=== PATIENT | female | born 1940 | race African-American/Black ===

== ENCOUNTER 2025-02-17 00:32 | Inpatient (IN) | payer MEDICARE ==
[~2025-02-17] VITALS: Ht 165.1 cm; Wt 59.0 kg
[2025-02-17 00:35] VITALS: O2SAT 98
[2025-02-17] MEDS: ONDANSETRON HCL 4MG/2ML INJ IV ONE (01:17)
[2025-02-17] MEDS: MORPHINE SULFATE 4 MG/ML INJ (FOR IV/IM USE) IV ONE (01:18)
[2025-02-17] MEDS: KETOROLAC 15MG/ML VIAL IV ONE (01:19)
[2025-02-17 01:20] LABS: BASOPHILS % 0.3 % (0.0-2.0); EOSINOPHILS % 0.1 % (0.0-5.0); HEMATOCRIT. 35.4 % (36.0-48.0); HEMOGLOBIN. 11.1 g/dL (12.0-16.0); LYMPHOCYTES % 9.4 % (20.0-50.0); MEAN PLATELET VOLUME 9.7 fl (7.4-10.4); MONOCYTES % 5.8 % (2.0-8.0); NEUTROPHILS % 84.4 % (40.0-76.0); PLATELET 208 x1000/uL (130-400); RED BLOOD CELL COUNT 3.94 mill/uL (4.2-5.4); RED CELL DISTRIBUTION WIDTH 14.5 % (11.6-14.6)
[2025-02-17 01:35] LABS: CREATININE 1.2 mg/dL (0.6-1.0); UREA NITROGEN BLOOD 19 mg/dL (9-23)
[2025-02-17 01:36] LABS: PROTEIN TOTAL 7.8 g/dL (6.0-8.3)
[2025-02-17 01:37] LABS: ASPARTATE AMINOTRANSFERASE 34 IU/L (<34); BILIRUBIN DIRECT 0.2 mg/dL (<=3.0); BILIRUBIN TOTAL 0.6 mg/dL (0.1-1.0)
[2025-02-17 05:19] VITALS: BP 128/72; PULSE 97; RESP 19; TEMP 36.14
[2025-02-17 08:00] VITALS: BP 106/58; PULSE 90; RESP 18; TEMP 37.4; O2SAT 97
[2025-02-17] MEDS ORDERED: MAGNESIUM/ALUMINUM HYDROXIDE/SIMETHICONE 30ML UDC PO PRN (08:45)
[2025-02-17] MEDS ORDERED: ONDANSETRON HCL 4MG/2ML INJ IV PRN (08:45)
[2025-02-17] MEDS ORDERED: ACETAMINOPHEN 650MG SUPP PR PRN ×2 (08:45)
[2025-02-17] MEDS ORDERED: GUAIFENESIN 200MG/10ML SUGAR FREE UDC PO PRN (08:45)
[2025-02-17] MEDS ORDERED: DOCUSATE SODIUM 100MG CAPSULE PO PRN (08:45)
[2025-02-17] MEDS ORDERED: IPRATROPIUM/ALBUTEROL 0.5-3(2.5)MG/3ML NEB HHN PRN (08:45)
[2025-02-17] MEDS: DEXT 5%/0.9% NACL 1,000 ML IV SCH (09:06)
[2025-02-17] MEDS: SODIUM ZIRCONIUM CYCLOSILICATE 10GM/PACKET PO SCH (09:15)
[2025-02-17] MEDS: MORPHINE SULFATE 2 MG/ML INJ (NOT FOR IM USE) IV PRN (09:16)
[2025-02-17 12:00] VITALS: BP 131/71; PULSE 101; RESP 18; TEMP 37.9; O2SAT 97
[2025-02-17 13:34] LABS: CLARITY URINE TURBID (CLEAR); COLOR URINE YELLOW (YELLOW); GLUCOSE URINE 3+ (NEGATIVE); KETONES URINE NEGATIVE (NEGATIVE); LEUKOCYTE ESTERASE URINE 1+ (NEGATIVE); NITRITE URINE NEGATIVE (NEGATIVE); OCCULT BLOOD URINE NEGATIVE (NEGATIVE); PH URINE 5.0 (4.5-8.0); PROTEIN URINE 1+ (NEGATIVE); SPECIFIC GRAVITY URINE 1.024 (1.005-1.030); UROBILINOGEN URINE 0.2 E.U./dL (0.2-1.0)
[2025-02-17 13:37] LABS: *AMPHETAMINES SCREEN URINE NEGATIVE (NEGATIVE)
[2025-02-17 13:38] LABS: *BARBITURATES SCREEN URINE NEGATIVE (NEGATIVE); *BENZODIAZEPINES SCREEN URINE NEGATIVE (NEGATIVE); *COCAINE SCREEN URINE NEGATIVE (NEGATIVE); CANNABINOID URINE SCREEN NEGATIVE (NEGATIVE); ECSTASY MDMA SCREEN URINE NEGATIVE (NEGATIVE); METHADONE URINE SCREEN NEGATIVE (NEGATIVE); OPIATES URINE SCREEN PRESUMPTIVE POSITIVE (NEGATIVE); PHENCYCLIDINE URINE SCREEN NEGATIVE (NEGATIVE)
[2025-02-17 13:59] LABS: BACTERIA URINE 4+; SQUAMOUS EPITHELIAL CELL URINE RARE /lpf (RARE/1+)
[2025-02-17 14:01] LABS: RBC URINE 0-2 /hpf (0-2)
[2025-02-17 16:00] VITALS: BP 110/63; PULSE 103; RESP 16; TEMP 38; O2SAT 97
[2025-02-17] MEDS: ACETAMINOPHEN 650MG/20.3ML UDC PO PRN (16:05)
[2025-02-17] MEDS ORDERED: SODIUM ZIRCONIUM CYCLOSILICATE 10GM/PACKET PO NR (18:15)
[2025-02-17] MEDS ORDERED: NALOXONE HCL 0.4MG/ML VIAL IV PRN (19:00)
[2025-02-17] MEDS: SODIUM ZIRCONIUM CYCLOSILICATE 10GM/PACKET PO NR (19:44)
[2025-02-17 20:00] VITALS: BP 101/51; PULSE 93; RESP 16; RESP 18; TEMP 36.1; O2SAT 96
[2025-02-17] MEDS: KETOROLAC 30MG/ML VIAL IV NR (23:10)
[2025-02-18] VITALS: BP 111/63; PULSE 95; RESP 18; TEMP 36.7; O2SAT 96
[2025-02-18 04:00] VITALS: BP 131/65; PULSE 91; RESP 18; TEMP 36.6; O2SAT 95
[2025-02-18 08:00] VITALS: BP 139/66; PULSE 97; RESP 18; TEMP 37.1; O2SAT 97
[2025-02-18] MEDS: CEFTRIAXONE 1GM/50ML 50 ML IV SCH (08:16)
[2025-02-18 08:23] LABS: INR 1.0
[2025-02-18 08:24] LABS: CREATININE 1.0 mg/dL (0.6-1.0); TRIGLYCERIDE 125 mg/dL (0-150); UREA NITROGEN BLOOD 22 mg/dL (9-23)
[2025-02-18 08:25] LABS: LDL CHOLESTEROL 45 mg/dL (5-100)
[2025-02-18 08:27] LABS: BASOPHILS % 0.4 % (0.0-2.0); EOSINOPHILS % 1.1 % (0.0-5.0); HEMATOCRIT. 24.2 % (36.0-48.0); HEMOGLOBIN. 7.8 g/dL (12.0-16.0); LYMPHOCYTES % 29.2 % (20.0-50.0); MEAN PLATELET VOLUME 9.6 fl (7.4-10.4); MONOCYTES % 11.1 % (2.0-8.0); NEUTROPHILS % 58.2 % (40.0-76.0); PLATELET 136 x1000/uL (130-400); RED BLOOD CELL COUNT 2.70 mill/uL (4.2-5.4); RED CELL DISTRIBUTION WIDTH 14.4 % (11.6-14.6)
[2025-02-18 08:32] LABS: T4 FREE 1.34 ng/dL (0.89-1.76)
[2025-02-18] MEDS ORDERED: PROPOFOL 200MG/20ML VIAL IV ONE (09:31)
[2025-02-18] MEDS ORDERED: FENTANYL CITRATE/PF 50MCG/ML 2ML VIAL ONE (09:31)
[2025-02-18] MEDS ORDERED: MIDAZOLAM HCL 2 MG/2 ML VIAL ONE (09:31)
[2025-02-18] MEDS ORDERED: TRANEXAMIC ACID 1000MG PREMIX 100 ML IV ONE (09:54)
[2025-02-18] MEDS: FENTANYL CITRATE/PF 50MCG/ML 2ML VIAL IV PRN (10:59)
[2025-02-18] MEDS ORDERED: HYDRALAZINE 20MG/ML VIAL IV PRN (11:00)
[2025-02-18] MEDS: ACETAMINOPHEN 1000MG/100ML 100 ML IV PRN (11:00)
[2025-02-18] MEDS ORDERED: ONDANSETRON HCL 4MG/2ML INJ IV PRN (11:00)
[2025-02-18 12:00] VITALS: BP 142/68; PULSE 94; RESP 18; TEMP 36.6; O2SAT 100
[2025-02-18] MEDS ORDERED: CEFAZOLIN 1000MG PREMIX 50 ML IV SCH (12:00)
[2025-02-18] MEDS: ASPIRIN 325MG EC TABLET PO SCH (12:55)
[2025-02-18] MEDS ORDERED: DEXTROSE 50% WATER 50ML SYRINGE IV PRN (13:30)
[2025-02-18 16:00] VITALS: BP 116/54; PULSE 90; RESP 18; TEMP 36.5; O2SAT 97
[2025-02-18] MEDS: CEFAZOLIN 1000MG PREMIX 50 ML IV SCH (16:47)
[2025-02-18] MEDS: BLOOD SUGAR DIAGNOSTIC STRIP TEST SCH (16:52)
[2025-02-18] MEDS: INSULIN LISPRO 100 UNITS/ML SUBCUT SCH (18:08)
[2025-02-18 20:00] VITALS: BP 105/49; PULSE 83; RESP 19; TEMP 36.2; O2SAT 98
[2025-02-19] VITALS (11 sets, daily range): BP systolic 120–172; BP diastolic 55–87; PULSE 92–105; RESP 18–20; TEMP 36.2–36.8; O2SAT 94–100
[2025-02-19 08:12] LABS: BASOPHILS % 0.2 % (0.0-2.0); EOSINOPHILS % 0.3 % (0.0-5.0); LYMPHOCYTES % 17.5 % (20.0-50.0); MEAN PLATELET VOLUME 9.7 fl (7.4-10.4); MONOCYTES % 8.4 % (2.0-8.0); NEUTROPHILS % 73.6 % (40.0-76.0); PLATELET 143 x1000/uL (130-400); RED BLOOD CELL COUNT 2.18 mill/uL (4.2-5.4); RED CELL DISTRIBUTION WIDTH 14.2 % (11.6-14.6)
[2025-02-19 08:31] LABS: CREATININE 0.8 mg/dL (0.6-1.0)
[2025-02-19 08:33] LABS: UREA NITROGEN BLOOD 19 mg/dL (9-23)
[2025-02-19 08:55] LABS: HEMATOCRIT. 19.5 % (36.0-48.0); HEMOGLOBIN. 6.4 g/dL (12.0-16.0)
[2025-02-19] MEDS: INSULIN LISPRO 100 UNITS/ML SUBCUT SCH (13:00)
[2025-02-19] MEDS ORDERED: NA PHOS,M-B/NA PHOS,DI-BA ENEMA 118ML PR PRN (16:15)
[2025-02-19] MEDS ORDERED: BISACODYL 10MG SUPP PR PRN (16:15)
[2025-02-19] MEDS: LACTULOSE 20G/30ML UDC PO SCH (20:50)
[2025-02-19] MEDS: HYDROMORPHONE HCL/PF 1MG/ML INJ IV PRN (20:51)
[2025-02-19] MEDS: CLONIDINE 0.1MG TABLET PO PRN (21:08)
[2025-02-19] MEDS: INSULIN GLARGINE 100 UNITS/ML SUBCUT SCH (21:24)
[2025-02-20] VITALS: BP 120/58; PULSE 87; RESP 18; TEMP 36.3; O2SAT 95
[2025-02-20 04:00] VITALS: BP 109/56; PULSE 77; RESP 17; TEMP 36.2; O2SAT 96
[2025-02-20 07:03] LABS: BASOPHILS % 0.2 % (0.0-2.0); EOSINOPHILS % 1.5 % (0.0-5.0); HEMATOCRIT. 24.7 % (36.0-48.0); HEMOGLOBIN. 8.1 g/dL (12.0-16.0); LYMPHOCYTES % 25.4 % (20.0-50.0); MEAN PLATELET VOLUME 9.1 fl (7.4-10.4); MONOCYTES % 12.7 % (2.0-8.0); NEUTROPHILS % 60.2 % (40.0-76.0); PLATELET 146 x1000/uL (130-400); RED BLOOD CELL COUNT 2.84 mill/uL (4.2-5.4); RED CELL DISTRIBUTION WIDTH 15.9 % (11.6-14.6)
[2025-02-20 07:18] LABS: CREATININE 0.7 mg/dL (0.6-1.0)
[2025-02-20 07:19] LABS: UREA NITROGEN BLOOD 15 mg/dL (9-23)
[2025-02-20 08:00] VITALS: BP 137/67; PULSE 77; RESP 18; TEMP 36.8; O2SAT 98
[2025-02-20] MEDS: FOLIC ACID 1MG TABLET PO SCH (08:36)
[2025-02-20] MEDS: THIAMINE HCL 100MG TABLET PO SCH (08:37)
[2025-02-20 12:00] VITALS: BP 135/69; PULSE 83; RESP 20; TEMP 36.6; O2SAT 99
[2025-02-20 16:00] VITALS: BP 129/69; PULSE 80; RESP 18; TEMP 36.7; O2SAT 100
[2025-02-20 20:00] VITALS: BP 167/81; PULSE 91; RESP 18; TEMP 36.8; O2SAT 100
[2025-02-21] VITALS: BP 166/65; PULSE 90; RESP 19; TEMP 36.8; O2SAT 100
[2025-02-21 04:00] VITALS: BP 120/63; PULSE 87; RESP 16; TEMP 36.6; O2SAT 96
[2025-02-21 08:00] VITALS: BP 140/60; PULSE 85; RESP 20; TEMP 36.1; O2SAT 98
[2025-02-21 12:00] VITALS: BP 136/72; PULSE 84; RESP 20; TEMP 36.6; O2SAT 100
[2025-02-21 16:00] VITALS: BP 128/69; PULSE 82; RESP 20; TEMP 36.7; O2SAT 99
[2025-02-21 17:50] VITALS: BP 128/69; PULSE 82; TEMP 98
[2025-02-21] MEDS ORDERED: IPRATROPIUM/ALBUTEROL 0.5-3(2.5)MG/3ML NEB HHN SCH (18:00)
== END 2025-02-21 17:59 | DRG 480 ==
LOC: ER 00:32 → 8EST 02:43 → EDBEDREQTM 03:08 → EDBEDREQSVC 03:08 → EDBEDREQ 03:08 → ENRESERV 03:52
PROVIDERS: ADMIT Internal Medicine; ATTEND Internal Medicine
PROC: 0QS706Z Reposition Left Upper Femur with Intramedullary Internal Fixation Device, Open Approach (ICD-10-PCS; principal; 2025-02-18)
PROC: 30233N1 Transfusion of Nonautologous Red Blood Cells into Peripheral Vein, Percutaneous Approach (ICD-10-PCS; 2025-02-19)
DX: S72.142A Displaced intertrochanteric fracture of left femur, initial encounter for closed fracture (principal); A41.9 Sepsis, unspecified organism; N17.9 Acute kidney failure, unspecified; E87.5 Hyperkalemia; E11.42 Type 2 diabetes mellitus with diabetic polyneuropathy; D64.9 Anemia, unspecified; N39.0 Urinary tract infection, site not specified; J44.9 Chronic obstructive pulmonary disease, unspecified; I12.9 Hypertensive chronic kidney disease with stage 1 through stage 4 chronic kidney disease, or unspecified chronic kidney disease; N18.9 Chronic kidney disease, unspecified; R80.9 Proteinuria, unspecified; K59.00 Constipation, unspecified; Z87.891 Personal history of nicotine dependence; Z91.81 History of falling; W01.0XXA Fall on same level from slipping, tripping and stumbling without subsequent striking against object, initial encounter; Y93.01 Activity, walking, marching and hiking; Y92.89 Other specified places as the place of occurrence of the external cause; Y99.8 Other external cause status
CPT/HCPCS: 36415; 71045; 73502; 73522; 76000; 80048; 80061; 80076; 80305; 81003; 82040; 82550; 82962; 83036; 84145; 84439; 84443; 85025; 86850; 86900; 86920; 93005; 93970; 97110; 97116; 97162; 97166; 97530; 99285; A4615; J0690; J0696; J1171; J1815; J1885; J2250; J2270; J2405; J2704; J3010; J7042; P9016; J0131

== ENCOUNTER 2025-02-21 18:05 | Inpatient (IN) | payer MEDICARE ==
[~2025-02-21] VITALS: Ht 165.1 cm; Wt 58.1 kg
[2025-02-21 18:05] VITALS: BP 128/69; PULSE 82; RESP 18; TEMP 36.7; O2SAT 99
[2025-02-21] MEDS ORDERED: DEXTROSE 50% WATER 50ML SYRINGE IV PRN ×2 (19:45→20:00)
[2025-02-21 20:00] VITALS: BP 137/83; PULSE 90; RESP 18; TEMP 36.4; TEMP 36.4736; O2SAT 98
[2025-02-21] MEDS ORDERED: GUAIFENESIN 200MG/10ML SUGAR FREE UDC PO PRN (20:00)
[2025-02-21] MEDS ORDERED: NA PHOS,M-B/NA PHOS,DI-BA ENEMA 118ML PR PRN (20:00)
[2025-02-21] MEDS ORDERED: MAGNESIUM/ALUMINUM HYDROXIDE/SIMETHICONE 30ML UDC PO PRN (20:00)
[2025-02-21] MEDS ORDERED: NALOXONE HCL 0.4MG/ML 1ML VIAL IV PRN (20:00)
[2025-02-21] MEDS ORDERED: IPRATROPIUM/ALBUTEROL 0.5-3(2.5)MG/3ML NEB HHN PRN (20:00)
[2025-02-21] MEDS ORDERED: ONDANSETRON HCL 4MG/2ML INJ IV PRN (20:00)
[2025-02-21] MEDS ORDERED: MORPHINE SULFATE/PF 1 MG/ML 100 MG in BAG 1 EACH IV PRN (20:00)
[2025-02-21] MEDS ORDERED: ACETAMINOPHEN 650MG SUPP PR PRN ×2 (20:00)
[2025-02-21] MEDS: DEXT 5%/0.9% NACL 1,000 ML IV SCH (20:05)
[2025-02-21] MEDS ORDERED: BLOOD SUGAR DIAGNOSTIC STRIP TEST SCH (21:00)
[2025-02-21] MEDS: ASPIRIN 325MG EC TABLET PO SCH (21:00)
[2025-02-21] MEDS: INSULIN LISPRO 100 UNITS/ML SUBCUT SCH (21:00)
[2025-02-21] MEDS: BLOOD SUGAR DIAGNOSTIC STRIP TEST SCH (21:09)
[2025-02-21] MEDS: INSULIN GLARGINE 100 UNITS/ML SUBCUT SCH (22:00)
[2025-02-22] MEDS: MORPHINE SULFATE 2 MG/ML INJ (NOT FOR IM USE) IV PRN (04:51)
[2025-02-22 05:57] VITALS: PULSE 90; RESP 16; O2SAT 96
[2025-02-22] MEDS: IPRATROPIUM/ALBUTEROL 0.5-3(2.5)MG/3ML NEB HHN SCH (05:57)
[2025-02-22 08:00] VITALS: BP 153/70; PULSE 100; RESP 17; TEMP 36.7; O2SAT 95
[2025-02-22] MEDS: INSULIN LISPRO 100 UNITS/ML SUBCUT SCH (08:41)
[2025-02-22] MEDS: CYANOCOBALAMIN 100MCG TABLET PO SCH (08:45)
[2025-02-22] MEDS: FOLIC ACID 1MG TABLET PO SCH (08:45)
[2025-02-22] MEDS: CEFTRIAXONE 1GM/50ML 50 ML IV SCH (08:55)
[2025-02-22 12:33] LABS: BASOPHILS % 0.2 % (0.0-2.0); EOSINOPHILS % 1.1 % (0.0-5.0); HEMATOCRIT. 25.8 % (36.0-48.0); HEMOGLOBIN. 8.4 g/dL (12.0-16.0); LYMPHOCYTES % 9.8 % (20.0-50.0); MEAN PLATELET VOLUME 8.5 fl (7.4-10.4); MONOCYTES % 12.5 % (2.0-8.0); NEUTROPHILS % 76.4 % (40.0-76.0); PLATELET 207 x1000/uL (130-400); RED BLOOD CELL COUNT 2.88 mill/uL (4.2-5.4); RED CELL DISTRIBUTION WIDTH 16.2 % (11.6-14.6)
[2025-02-22 12:43] LABS: CREATININE 0.5 mg/dL (0.6-1.0); UREA NITROGEN BLOOD 9 mg/dL (9-23)
[2025-02-22 12:44] LABS: PROTEIN TOTAL 5.8 g/dL (6.0-8.3)
[2025-02-22 12:45] LABS: ASPARTATE AMINOTRANSFERASE 19 IU/L (<34); BILIRUBIN TOTAL 0.5 mg/dL (0.1-1.0)
[2025-02-22 13:15] VITALS: BP 152/82; PULSE 103; RESP 20; O2SAT 96
[2025-02-22 14:49] VITALS: PULSE 100; RESP 14
[2025-02-22] MEDS: POLYETHYLENE GLYCOL 3350 (17GM) 1 DOSE PACK PO SCH (17:50)
[2025-02-22 20:00] VITALS: BP 130/65; PULSE 101; RESP 18; TEMP 36.8; O2SAT 96
[2025-02-22 20:58] VITALS: PULSE 96; RESP 16; O2SAT 98
[2025-02-23 02:20] VITALS: PULSE 96; RESP 18; O2SAT 95
[2025-02-23 08:00] VITALS: BP 149/76; PULSE 98; RESP 19; TEMP 36.5; O2SAT 94
[2025-02-23 15:45] VITALS: BP 165/77; RESP 19; O2SAT 96
[2025-02-23] MEDS: CLONIDINE 0.1MG TABLET PO PRN (15:49)
[2025-02-23 17:22] VITALS: BP 109/58; PULSE 80; RESP 19; O2SAT 96
[2025-02-23 20:00] VITALS: BP 116/62; PULSE 97; RESP 16; TEMP 36.6; O2SAT 95
[2025-02-23] MEDS: BUDESONIDE 0.5MG/2ML NEB HHN SCH (20:10)
[2025-02-23 20:12] VITALS: PULSE 94; RESP 20; O2SAT 97
[2025-02-23 22:16] LABS: BASOPHILS % 0.5 % (0.0-2.0); EOSINOPHILS % 1.4 % (0.0-5.0); HEMATOCRIT. 25.2 % (36.0-48.0); HEMOGLOBIN. 7.9 g/dL (12.0-16.0); LYMPHOCYTES % 17.7 % (20.0-50.0); MEAN PLATELET VOLUME 8.5 fl (7.4-10.4); MONOCYTES % 13.8 % (2.0-8.0); NEUTROPHILS % 66.6 % (40.0-76.0); PLATELET 219 x1000/uL (130-400); RED BLOOD CELL COUNT 2.79 mill/uL (4.2-5.4); RED CELL DISTRIBUTION WIDTH 16.2 % (11.6-14.6)
[2025-02-23 22:33] LABS: CREATININE 0.6 mg/dL (0.6-1.0); PROTEIN TOTAL 5.7 g/dL (6.0-8.3)
[2025-02-23 22:34] LABS: UREA NITROGEN BLOOD 12 mg/dL (9-23)
[2025-02-23 22:36] LABS: ASPARTATE AMINOTRANSFERASE 17 IU/L (<34); BILIRUBIN TOTAL 0.5 mg/dL (0.1-1.0)
[2025-02-23 22:39] LABS: FOLIC ACID (FOLATE) SERUM 19.44 ng/mL (>5.38)
[2025-02-23 22:41] LABS: VITAMIN B12 SERUM 503 pg/mL (211-911)
[2025-02-24 02:32] VITALS: PULSE 90; RESP 20; O2SAT 96
[2025-02-24 08:00] VITALS: BP 123/59; PULSE 85; RESP 20; TEMP 36.2; O2SAT 100
[2025-02-24 08:05] VITALS: PULSE 87; RESP 21; O2SAT 98
[2025-02-24 14:09] VITALS: PULSE 97; RESP 20; O2SAT 94
[2025-02-24] MEDS: FERROUS SULFATE 325MG TABLET PO SCH (17:50)
[2025-02-24 20:00] VITALS: BP 149/68; PULSE 98; RESP 18; TEMP 36.6; O2SAT 98
[2025-02-24 20:35] VITALS: PULSE 94; RESP 18; O2SAT 95
[2025-02-25 01:49] VITALS: PULSE 90; RESP 20; O2SAT 97
[2025-02-25 08:00] VITALS: BP 160/83; PULSE 92; RESP 18; TEMP 36.7; O2SAT 98
[2025-02-25 09:47] VITALS: PULSE 92; RESP 19
[2025-02-25] MEDS: BISACODYL 10MG SUPP PR PRN (10:57)
[2025-02-25] MEDS: DOCUSATE SODIUM 100MG CAPSULE PO PRN (10:57)
[2025-02-25 13:57] VITALS: PULSE 87; RESP 18
[2025-02-25] MEDS: LACTULOSE 20G/30ML UDC PO PRN (16:47)
[2025-02-25 20:00] VITALS: BP 170/78; PULSE 102; RESP 17; TEMP 36.4; O2SAT 95
[2025-02-25 23:28] VITALS: PULSE 81; RESP 22; O2SAT 96
[2025-02-26 04:57] VITALS: PULSE 89; RESP 26; O2SAT 93
[2025-02-26] MEDS: GABAPENTIN 100MG CAPSULE PO SCH (06:35)
[2025-02-26 07:35] VITALS: PULSE 97; RESP 20; O2SAT 97
[2025-02-26 08:00] VITALS: BP_SYST 139; PULSE 101; RESP 17; TEMP 36.4; O2SAT 96
[2025-02-26] MEDS: AMLODIPINE 5MG TABLET PO SCH (08:41)
[2025-02-26] MEDS: IPRATROPIUM/ALBUTEROL 0.5-3(2.5)MG/3ML NEB HHN SCH (14:06)
[2025-02-26 14:07] VITALS: PULSE 80; RESP 20
[2025-02-26 20:00] VITALS: BP 107/68; PULSE 95; RESP 18; TEMP 37.5; O2SAT 100
[2025-02-26 21:26] VITALS: PULSE 78; RESP 22
[2025-02-27 03:20] VITALS: PULSE 87; RESP 22
[2025-02-27 07:27] VITALS: PULSE 82; RESP 20
[2025-02-27 08:00] VITALS: BP 106/58; PULSE 62; RESP 16; TEMP 36.3; O2SAT 98
[2025-02-27] MEDS: MORPHINE SULFATE 2 MG/ML INJ (NOT FOR IM USE) IV PRN (09:53)
[2025-02-27] MEDS ORDERED: NALOXONE HCL 0.4MG/ML VIAL IV PRN (13:30)
[2025-02-27 13:38] VITALS: PULSE 76; RESP 20
[2025-02-27] MEDS: HYDROCODONE/ACETAMINOPHEN 5/325MG TABLET PO PRN (15:38)
[2025-02-27 20:00] VITALS: BP 110/55; PULSE 90; RESP 18; TEMP 36.7; O2SAT 99
[2025-02-28 07:38] VITALS: PULSE 83; RESP 17; O2SAT 100
[2025-02-28 08:00] VITALS: BP 158/78; PULSE 79; RESP 18; TEMP 36.6; O2SAT 100
[2025-02-28 10:45] LABS: BASOPHILS % 0.3 % (0.0-2.0); EOSINOPHILS % 2.2 % (0.0-5.0); HEMATOCRIT. 28.2 % (36.0-48.0); HEMOGLOBIN. 9.1 g/dL (12.0-16.0); LYMPHOCYTES % 15.8 % (20.0-50.0); MEAN PLATELET VOLUME 7.5 fl (7.4-10.4); MONOCYTES % 7.9 % (2.0-8.0); NEUTROPHILS % 73.8 % (40.0-76.0); PLATELET 307 x1000/uL (130-400); RED BLOOD CELL COUNT 3.21 mill/uL (4.2-5.4); RED CELL DISTRIBUTION WIDTH 16.1 % (11.6-14.6)
[2025-02-28 10:47] LABS: CREATININE 0.6 mg/dL (0.6-1.0); UREA NITROGEN BLOOD 14 mg/dL (9-23)
[2025-02-28 14:07] VITALS: PULSE 83; RESP 23; O2SAT 97
[2025-02-28 19:59] VITALS: PULSE 67; RESP 20; O2SAT 98
[2025-02-28 20:00] VITALS: BP 127/64; PULSE 86; RESP 18; TEMP 36.3; O2SAT 99
[2025-03-01 02:13] VITALS: PULSE 75; RESP 18; O2SAT 98
[2025-03-01 08:00] VITALS: BP 139/70; PULSE 87; RESP 18; TEMP 36.7; O2SAT 97
[2025-03-01] MEDS: DICLOFENAC SODIUM 1% GEL 50GM TOP SCH (14:00)
[2025-03-01 14:42] VITALS: PULSE 80; RESP 18; O2SAT 97
[2025-03-01 20:00] VITALS: BP 110/53; PULSE 87; RESP 18; TEMP 36.4; O2SAT 95
[2025-03-01 20:59] VITALS: PULSE 87; RESP 20
[2025-03-02 02:03] VITALS: PULSE 88; RESP 20
[2025-03-02 08:00] VITALS: BP 130/64; PULSE 86; RESP 19; TEMP 36.4; O2SAT 100
[2025-03-02] MEDS: DEXT 5%/0.45% NACL 1000ML 1,000 ML IV SCH (13:49)
[2025-03-02] MEDS ORDERED: NON FORMULARY MED XX SCH (14:30)
[2025-03-02 14:55] VITALS: PULSE 85; RESP 14
[2025-03-02] MEDS ORDERED: LORAZEPAM 2MG/ML UD SYRINGE IV PRN (17:30)
[2025-03-02] MEDS: IRON SUCROSE COMPLEX 100 MG/5 ML ML IV SCH (18:46)
[2025-03-02] MEDS: PANTOPRAZOLE SODIUM 40 MG/VIAL IV SCH (18:46)
[2025-03-02 20:00] VITALS: BP 125/64; PULSE 88; RESP 18; TEMP 36.4; O2SAT 99
[2025-03-02 21:11] VITALS: PULSE 87; RESP 14; O2SAT 97
[2025-03-03 02:32] VITALS: PULSE 80; RESP 14; O2SAT 96
[2025-03-03 07:40] LABS: CREATININE 0.5 mg/dL (0.6-1.0)
[2025-03-03 07:41] LABS: PROTEIN TOTAL 6.0 g/dL (6.0-8.3); UREA NITROGEN BLOOD 15 mg/dL (9-23)
[2025-03-03 07:42] LABS: ASPARTATE AMINOTRANSFERASE 23 IU/L (<34)
[2025-03-03 07:43] LABS: BILIRUBIN TOTAL 0.5 mg/dL (0.1-1.0)
[2025-03-03 07:45] LABS: INR 1.0
[2025-03-03 07:48] VITALS: PULSE 85; RESP 14; O2SAT 95
[2025-03-03 08:00] VITALS: BP 120/60; PULSE 86; RESP 18; TEMP 36.6; O2SAT 97
[2025-03-03 08:21] LABS: BASOPHILS % 0.3 % (0.0-2.0); EOSINOPHILS % 1.7 % (0.0-5.0); HEMATOCRIT. 25.7 % (36.0-48.0); HEMOGLOBIN. 8.4 g/dL (12.0-16.0); LYMPHOCYTES % 16.1 % (20.0-50.0); MEAN PLATELET VOLUME 7.8 fl (7.4-10.4); MONOCYTES % 7.3 % (2.0-8.0); NEUTROPHILS % 74.6 % (40.0-76.0); PLATELET 259 x1000/uL (130-400); RED BLOOD CELL COUNT 2.90 mill/uL (4.2-5.4); RED CELL DISTRIBUTION WIDTH 16.8 % (11.6-14.6)
[2025-03-03] MEDS: ASPIRIN 325MG TABLET NG SCH (13:24)
[2025-03-03 14:23] VITALS: PULSE 83; RESP 14
[2025-03-03 20:00] VITALS: BP 141/63; PULSE 90; RESP 19; TEMP 36.5; O2SAT 98
[2025-03-03 21:30] VITALS: PULSE 82; RESP 16; O2SAT 96
[2025-03-04 07:26] VITALS: PULSE 80; RESP 20
[2025-03-04] MEDS: IPRATROPIUM/ALBUTEROL 0.5-3(2.5)MG/3ML NEB HHN SCH (07:26)
[2025-03-04 08:00] VITALS: BP 158/74; PULSE 87; RESP 18; TEMP 36.1; O2SAT 99
[2025-03-04 13:30] VITALS: PULSE 82; RESP 20
[2025-03-04 20:00] VITALS: BP 157/74; PULSE 92; RESP 18; TEMP 37.1; O2SAT 98
[2025-03-04 20:30] VITALS: PULSE 88; RESP 20
[2025-03-05 07:59] VITALS: PULSE 102; RESP 18
[2025-03-05 08:00] VITALS: BP 120/58; PULSE 60; RESP 18; TEMP 36.4; O2SAT 97
[2025-03-05 14:16] VITALS: PULSE 91; RESP 20; O2SAT 92
[2025-03-05 20:00] VITALS: BP 135/64; PULSE 92; RESP 18; TEMP 37.7; O2SAT 96
[2025-03-05 20:08] VITALS: PULSE 94; RESP 20; O2SAT 93
[2025-03-05] MEDS: MELATONIN 3MG TABLET PO SCH (22:37)
[2025-03-06 02:14] VITALS: PULSE 89; RESP 20; O2SAT 96
[2025-03-06 06:39] LABS: BASOPHILS % 0.4 % (0.0-2.0); EOSINOPHILS % 1.7 % (0.0-5.0); HEMATOCRIT. 28.1 % (36.0-48.0); HEMOGLOBIN. 9.1 g/dL (12.0-16.0); LYMPHOCYTES % 13.3 % (20.0-50.0); MEAN PLATELET VOLUME 7.9 fl (7.4-10.4); MONOCYTES % 7.0 % (2.0-8.0); NEUTROPHILS % 77.6 % (40.0-76.0); PLATELET 220 x1000/uL (130-400); RED BLOOD CELL COUNT 3.13 mill/uL (4.2-5.4); RED CELL DISTRIBUTION WIDTH 18.2 % (11.6-14.6)
[2025-03-06 06:48] LABS: CREATININE 0.5 mg/dL (0.6-1.0); UREA NITROGEN BLOOD 15 mg/dL (9-23)
[2025-03-06 07:44] VITALS: PULSE 87; RESP 18; O2SAT 96
[2025-03-06 08:00] VITALS: BP 124/61; PULSE 85; RESP 17; TEMP 36.6; O2SAT 97
[2025-03-06] MEDS ORDERED: IOHEXOL-300 100 ML BOTTLE ONE (15:59)
[2025-03-06 20:00] VITALS: BP 150/75; PULSE 89; RESP 18; TEMP 36.3; O2SAT 96
[2025-03-06 21:10] VITALS: PULSE 85; RESP 18; O2SAT 98
[2025-03-07 06:19] LABS: BASOPHILS % 0.4 % (0.0-2.0); EOSINOPHILS % 1.3 % (0.0-5.0); HEMATOCRIT. 29.2 % (36.0-48.0); HEMOGLOBIN. 9.5 g/dL (12.0-16.0); LYMPHOCYTES % 12.4 % (20.0-50.0); MEAN PLATELET VOLUME 8.3 fl (7.4-10.4); MONOCYTES % 7.5 % (2.0-8.0); NEUTROPHILS % 78.4 % (40.0-76.0); PLATELET 250 x1000/uL (130-400); RED BLOOD CELL COUNT 3.24 mill/uL (4.2-5.4); RED CELL DISTRIBUTION WIDTH 18.0 % (11.6-14.6)
[2025-03-07 06:25] LABS: INR 0.9
[2025-03-07 06:39] LABS: CREATININE 0.5 mg/dL (0.6-1.0); UREA NITROGEN BLOOD 14 mg/dL (9-23)
[2025-03-07 06:42] LABS: PHOSPHORUS 3.2 mg/dL (2.5-4.9)
[2025-03-07 08:00] VITALS: BP 148/74; PULSE 92; RESP 22; TEMP 36.4; O2SAT 97
[2025-03-07 10:33] VITALS: PULSE 89; RESP 18; O2SAT 97
[2025-03-07] MEDS ORDERED: PROPOFOL 200MG/20ML VIAL IV ONE (15:22)
[2025-03-07] MEDS ORDERED: LIDOCAINE HCL 1% 10 MG/ML 10ML VIAL ONE (15:23)
[2025-03-07] MEDS ORDERED: PHENYLEPHRINE HCL 10MG/ML 1ML IV ONE (15:37)
[2025-03-07 17:54] VITALS: PULSE 84; RESP 18; O2SAT 97
[2025-03-07 20:00] VITALS: BP 160/78; PULSE 108; RESP 19; TEMP 37; O2SAT 96
[2025-03-07 20:04] VITALS: PULSE 82; RESP 18; O2SAT 96
[2025-03-08 02:50] VITALS: PULSE 92; RESP 18; O2SAT 96
[2025-03-08 08:00] VITALS: BP 149/69; PULSE 95; RESP 17; TEMP 37.5; O2SAT 98
[2025-03-08] MEDS: IOHEXOL-300 100 ML BOTTLE ONE (08:05)
[2025-03-08 08:07] VITALS: PULSE 85; RESP 18; O2SAT 97
[2025-03-08] MEDS ORDERED: AMLODIPINE 5MG TABLET PO SCH (12:00)
[2025-03-08] MEDS ORDERED: NALOXONE HCL 0.4MG/ML VIAL IV PRN (12:15)
[2025-03-08] MEDS: HYDROCODONE/ACETAMINOPHEN 5/325MG TABLET PO SCH (12:24)
[2025-03-08] MEDS ORDERED: ACETAMINOPHEN 650MG SUPP PR PRN (13:00)
[2025-03-08] MEDS ORDERED: GUAIFENESIN 200MG/10ML SUGAR FREE UDC PO PRN (16:15)
[2025-03-08] MEDS: FUROSEMIDE 40MG/4ML VIAL IVP NR (18:11)
[2025-03-08 20:00] VITALS: BP 122/61; PULSE 84; RESP 18; TEMP 36.8; O2SAT 98
[2025-03-08] MEDS: HYDROCODONE/ACETAMINOPHEN 5/325MG TABLET PO PRN (22:18)
[2025-03-08 22:30] VITALS: PULSE 83; RESP 18; O2SAT 94
[2025-03-09 08:00] VITALS: BP 130/63; PULSE 101; RESP 20; TEMP 36.9; O2SAT 84
[2025-03-09 13:40] VITALS: PULSE 80; RESP 20; O2SAT 95
[2025-03-09 20:00] VITALS: BP 130/67; PULSE 99; RESP 18; TEMP 36.7; O2SAT 95
[2025-03-09] MEDS: FUROSEMIDE 20MG TABLET PO SCH (21:40)
[2025-03-09 21:52] VITALS: PULSE 110; RESP 21; O2SAT 92
[2025-03-10 02:41] VITALS: PULSE 93; RESP 20; O2SAT 97
[2025-03-10 08:00] VITALS: BP 156/72; PULSE 97; RESP 20; TEMP 36.5; O2SAT 95
[2025-03-10 10:22] VITALS: PULSE 84; RESP 22
[2025-03-10 11:27] VITALS: BP 125/59; PULSE 100; RESP 19; O2SAT 89
[2025-03-10 12:31] VITALS: BP 127/62; PULSE 99; RESP 19; O2SAT 96
[2025-03-10 15:44] VITALS: BP 156/72; PULSE 97; RESP 18; TEMP 97.7
[2025-03-10] MEDS: FUROSEMIDE 40MG/4ML VIAL IVP SCH (16:27)
[2025-03-10] MEDS ORDERED: PHENOL/SODIUM PHENOLATE 1.4% SRPAY 177ML MM PRN (17:00)
== END 2025-03-10 17:00 | disposition short-term general hospital (02) | DRG 535 ==
LOC: UNDODISIN 03-10 16:51 → 7WST 03-10 16:56
PROVIDERS: ADMIT Physical Medicine & Rehabilitation Spinal Cord Injury Medicine; ATTEND Internal Medicine
DX: S72.142A Displaced intertrochanteric fracture of left femur, initial encounter for closed fracture (principal); A41.9 Sepsis, unspecified organism; R64 Cachexia; J90 Pleural effusion, not elsewhere classified; F33.1 Major depressive disorder, recurrent, moderate; N17.9 Acute kidney failure, unspecified; R13.10 Dysphagia, unspecified; I80.8 Phlebitis and thrombophlebitis of other sites; N39.0 Urinary tract infection, site not specified; D64.9 Anemia, unspecified; E11.42 Type 2 diabetes mellitus with diabetic polyneuropathy; I10 Essential (primary) hypertension; J44.9 Chronic obstructive pulmonary disease, unspecified; S27.0XXD Traumatic pneumothorax, subsequent encounter; F17.200 Nicotine dependence, unspecified, uncomplicated; K59.00 Constipation, unspecified; K57.30 Diverticulosis of large intestine without perforation or abscess without bleeding; E11.65 Type 2 diabetes mellitus with hyperglycemia; E61.1 Iron deficiency; F41.1 Generalized anxiety disorder; K22.89 Other specified disease of esophagus; K29.70 Gastritis, unspecified, without bleeding; R32 Unspecified urinary incontinence; R47.02 Dysphasia; W01.0XXD Fall on same level from slipping, tripping and stumbling without subsequent striking against object, subsequent encounter; E87.70 Fluid overload, unspecified; R26.9 Unspecified abnormalities of gait and mobility; R13.12 Dysphagia, oropharyngeal phase; R07.0 Pain in throat; Z79.4 Long term (current) use of insulin; Z91.81 History of falling; Z68.21 Body mass index [BMI] 21.0-21.9, adult; Z79.899 Other long term (current) drug therapy; Z88.8 Allergy status to other drugs, medicaments and biological substances; Z79.82 Long term (current) use of aspirin
CPT/HCPCS: 36415; 70491; 71045; 74177; 74230; 80048; 80053; 82607; 82728; 82746; 82962; 83036; 83540; 83550; 83735; 84100; 84134; 84443; 85025; 85044; 88305; 92523; 92610; 92611; 94070; 94640; 94664; 94760; 97110; 97116; 97140; 97162; 97166; 97530; 97535; 97542; 98960; A4606; A4615; J0696; J1815; J1938; J2003; J2270; J2371; J2470; J2704; J7042; J7626; Q9967